=== PATIENT | female | born 1965 | race Caucasian/White ===

== ENCOUNTER 2022-02-28 11:12 | Outpatient (CLI) | payer BC | END 2022-02-28 11:13 | disposition home or self-care (01) | LOC: CSHMAMMO 11:12 | PROVIDERS: ATTEND Family Medicine | DX: Z12.31 Encounter for screening mammogram for malignant neoplasm of breast (principal); Z80.3 Family history of malignant neoplasm of breast | CPT/HCPCS: 77063; 77067 ==

== ENCOUNTER 2023-04-18 12:31 | Outpatient (CLI) | payer BC | END 2023-04-18 12:32 | disposition home or self-care (01) | LOC: CSHMAMMO 12:31 | PROVIDERS: ATTEND Family Medicine | DX: Z12.31 Encounter for screening mammogram for malignant neoplasm of breast (principal); Z80.3 Family history of malignant neoplasm of breast | CPT/HCPCS: 77063; 77067 ==

== ENCOUNTER 2025-04-28 09:26 | Outpatient (CLI) | payer BC | END 2025-04-28 09:27 | disposition home or self-care (01) | LOC: CSHMAMMO 09:26 | PROVIDERS: ATTEND Family Medicine | DX: Z12.31 Encounter for screening mammogram for malignant neoplasm of breast (principal); Z80.3 Family history of malignant neoplasm of breast | CPT/HCPCS: 77063; 77067 ==